=== PATIENT | female | born 1995 | race Hispanic/Latino ===

== ENCOUNTER 2018-06-25 14:11 | Outpatient (CLI) | payer MEDICARE | END 2018-06-25 14:12 | disposition home or self-care (01) | LOC: C.LAB 14:11 | DX: Q66.81 Congenital vertical talus deformity, right foot (principal) ==

== ENCOUNTER 2018-06-27 05:43 | Day surgery (SDC) | payer MEDICAID, MEDICARE ==
[2018-06-27 06:04] VITALS: BMI 25.7
[2018-06-27] MEDS ORDERED: Lidocaine 2% MPF (5 ml) Inj ONE ×2 (07:19)
[2018-06-27] MEDS ORDERED: Bupivacaine 0.25% 20 ML INJ IJ ONE (07:19)
[2018-06-27] MEDS ORDERED: ceFAZolin 1 gm in NS 2 GM/200 ML BAG IVPB ONE (07:19)
[2018-06-27] MEDS ORDERED: Midazolam 2 MG/2 ML VIAL ONE (07:49)
[2018-06-27] MEDS ORDERED: Propofol 10 mg/ml Inj (20 ML) ONE (07:50)
--- NOTE | 2018-06-27 10:14 | PCM.SURG1 ---
Surgeon's Initial Post Op Note - Surgeon's Notes Surgeon: Dr. Stokes, DPM Plater Hot Dip: Dr. Parish Cummings DPM, PGY-3; ENMANUEL GastonM PGY-2, ENMANUEL BoltonM PGY-2 Type of Anesthesia: General LMA, Local Anesthesia Administered By: Dr. 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 2) extensor tendon lengthening of 4th MTPJ R foot Specimen/Specimens Removed: none Estimated Blood Loss: EBL {In ML}: 15 Blood Products Given: N/A Drains Used: No Drains Post-Op Condition: Good Date of Surgery/Procedure: 06/27/18 Time of Surgery/Procedure: 08:00
[2018-06-27] MEDS ORDERED: Oxycodone/Acetaminophen 5/325 mg Tab PO PRN ×2 (10:15)
[2018-06-27] MEDS ORDERED: Bupivacaine HCl 0.25% PF (10 ml) Inj ONE (10:21)
[2018-06-27] MEDS ORDERED: HYDROmorphone 0.5 mg/0.5 ml ISec IVP PRN (10:25)
[2018-06-27] MEDS ORDERED: Lactated Ringer's 1,000 ML IV SCH (10:30)
[2018-06-27 12:00] VITALS: PULSE 86; RESP 18
[2018-06-27 13:11] VITALS: BP 118/86; TEMP 97.7; O2SAT 99
--- NOTE | 2018-06-27 14:04 | RAD ---
Date of service: 06/27/2018 PROCEDURE: Right Foot Radiographs. HISTORY: s/p R foot surgery COMPARISON: None. TECHNIQUE: 3 views obtained. FINDINGS: BONES: K-wire identified traversing the fracture of the 4th metatarsal. Major fracture fragments are anatomically aligned. JOINTS: Normal. SOFT TISSUES: Normal. OTHER FINDINGS: None. IMPRESSION: Satisfactory postoperative status.
--- NOTE | 2018-06-28 08:38 | OP ---
PROCEDURE DATE: 06/27/2018 SURGEON: Bernardo Stokes DPM. TELEMETRY REGISTERED NURSE: Celine Cummings DPM, PGY-2; Haider Nova DPM, PGY-2; Marissa Ortiz DPM, PGY-2. BEEF CATTLE SPECIALIST: Lavelle Blackwell DO ANESTHESIA: LMA with local. PREOPERATIVE DIAGNOSIS: Brachymetatarsia of fourth metatarsal, right foot. POSTOPERATIVE DIAGNOSIS: Brachymetatarsia of fourth metatarsal, right foot. NAME OF PROCEDURE: 1. V-Y skin plasty of right foot. 2. Lengthening osteotomy of fourth metatarsal with bone allograft and K-wire fixation, right foot. 3. Application of platelet-rich plasma to fourth metatarsal, right foot. 4. Extensor tendon lengthening of fourth metatarsophalangeal joint, right foot. INDICATIONS: The patient is a 23-year-old female with the above-mentioned diagnoses. The patient has exhausted conservative treatment at this time and now is requesting surgical intervention. The patient signed the consent after careful explanation of all risks, benefits, complications, and alternatives for surgical procedures. No guarantees were given nor implied. N.p.o. status was confirmed prior to taking the patient to the operating room. Ancef 1 g IV was given to the patient preoperatively. PREPARATION: The patient was brought to the operating room and placed in the operating room table in a supine position. After induction of IV sedation, the patient received a total of 10 mL of a 1:1 mixture consisting of 0.5% Marcaine plain with 1% lidocaine plain in a local block fashion to the right foot. Once local anesthesia was achieved, the right foot was then prepped and draped in the usual sterile manner. Esmarch bandage was utilized to exsanguinate the patient's right foot, and the pneumatic ankle tourniquet was inflated to 250 mmHg and the procedure begun. PROCEDURE #1: V-Y skin plasty of right foot. Attention was directed to the dorsal aspect of the patient's right foot where a shortened and extended fourth digit could be appreciated in comparison to the other digits. At this time, intraoperative fluoroscopy was utilized to faustino out the borders of the base and diaphysis of the fourth metatarsal in question. The skin edges were then marked in order to create an approximately 5 cm linear longitudinal incision which had an approximately 1 cm arm pointing proximal medially and one pointing proximal laterally. At this time, #15 blade was utilized to make the skin incision with care being taken to avoid all vital neurovascular structures. All bleeders were cauterized and ligated as necessary. Procedure #2: Lengthening osteotomy of fourth metatarsal with bone allograft and K-wire fixation, right foot. Using the combination of sharp and blunt tissue dissection, the incision was then carried down to the level of the periosteal tissue which was incised using #15 blade and reflected medially and laterally, thus exposing the proximal one third of the fourth metatarsal into view. At this time, the metatarsal was again marked in order to ensure proper location of the osteotomy which did appear to be correct at this time. Using a sagittal saw, a through and through osteotomy was made through the metatarsal from inferior to superior with a 15-degree declination angle in order to solve the problem at the metatarsal. Next, an osteotome was utilized to fully free the metatarsal at this time, and the surgical site was then flushed with copious amounts of sterile normal saline solution and the Arthrex harp instrument was utilized to distract the fourth metatarsal osteotomy. At this time, an approximately 15 mm of length was gained and next using the Arthrex distractor, a 0.062 K-wire was placed proximally and the second 0.062 K-wire was placed distally to the osteotomy site which allowed for the osteotomy to be held open at this time. Next, an Arthrex dowel bone allograft was chosen and then cut to the 50 mm length as measured, any roughened edges were then smoothed down using the bone rasp. The bone graft was then placed between the proximal and distal aspect of the metatarsal and correction of the deformity appeared to be adequate at this time with increased length of the fourth metatarsal and subsequent length of the fourth digit compared to the surrounding digits. At this time, the K-wire and the distractor were removed and additional 0.062 K-wire was then driven under the focus of the fourth digit into the head of the metatarsal and across the osteotomy at the bone graft site. Intraoperative fluoroscopy was again utilized to ensure adequate correction which was achieved at this time. The surgical site was flushed with copious amounts of sterile normal saline solution. PROCEDURE #3: Application of PRP to fourth metatarsal, right foot. It should be noted that prior to placing the allograft within the osteotomy site, the bone dowel was soaked in approximately 3 mL of the patient's own platelet-rich plasma and implanted into the osteotomy site. PROCEDURE: #4: Extensor tendon lengthening, fourth metatarsophalangeal joint right foot. At this time, it did appear to be the case that there was a persistent extensive contraction at the fourth metatarsophalangeal joint with the digit contracted. At this time, a Z-lengthening was then performed to the extensor tendon which released any remaining contracture from the toe allowing the fourth toe to sit any more well-aligned rectus position. Again the surgical site was flushed with copious amounts of sterile normal saline solution. The periosteal tissue was reapproximated using 3-0 Vicryl. The subcutaneous tissue was reapproximated using 4-0 Vicryl and the skin edges were reapproximated using 4-0 Prolene suture. Additional 10 mL of 0.5% Marcaine plain was injected to the surgical site postoperatively. The foot was then bandaged with Xeroform, 4x4 gauze, a Alex, and a well-padded posterior splint was applied to the patient's right lower extremity with the foot dorsiflexed to a neutral position in relation to the leg. POSTOPERATIVE CONDITION: The patient tolerated the procedure and anesthesia well with no apparent complications or complaints. She was escorted from the OR to recovery room with vital signs stable and neurovascular status intact to the patient's right foot. It should be noted that prior to bringing the patient to the recovery room, the tourniquet was dropped with immediate capillary refill time noted to the fourth digit and the remaining toes. The patient will be strictly nonweightbearing to the right foot with crutches and the posterior splint. She will follow up in the office with Dr. Stokes within one week. Celine Cummings DPM Bernardo Stokes DPM JENNIFER
== END 2018-06-27 12:40 | disposition home or self-care (01) ==
LOC: C.SDS 05:43
PROVIDERS: ATTEND Podiatrist Foot & Ankle Surgery
DX: Q72.891 Other reduction defects of right lower limb (principal)
CPT/HCPCS: 27685; 28308; 73620; 97116; 97161; G8978; G8979; G8980; J0690; J2175; J2250; J2704; J3010